=== PATIENT | male | born 1985 | race Caucasian/White ===

== ENCOUNTER 2025-02-11 09:51 | Outpatient (REF) | payer SELFPAY ==
--- OUTSIDE RECORDS SUMMARY | 2025-02-11 10:58 | XMS_ITS | Encounter Summary ---
Author Organization [employer] Address [address] [facility] 7t [place] [address] Care Team Providers Care Miniature Model Maker Name Role Phone Kathryn Parsons MD Primary Care Provider +1- [phone] Encounter Details Date Type Department Care Team (Late st Contact Info) Description 02/11/2025 9:15 AM EDT Office Visit [facility] MED & PEDS [address] [place], [place] [phone] Kathryn Parsons MD [address] [place] [address] Opioid abuse, in remission (CMS/HCC) (Primary Dx); Smoking addiction Social History Tobacco Use Types Packs/Day Years Used Date Smoking Tobacco: Every Day Cigarettes Tobacco Cessation:Ready to Q uit: Not Asked; Counseling Given: Not Answered Comments:15 cig a day x the last 25 years. Alcohol Answer Date Recorded How often do you have a drink containing alcohol ? 2 02/11/2025 How many drinks containing a lcohol do you have on a typical day when you are drinking? 1 02/11/2025 How often do you have six or more drinks on one occasion? 0 02/11/2025 Depression Answer Date Recorded Patient Health Questionnaire-9 Score 2 02/11/2025 Patient Health Questionnaire-9 Score 2 02/11/2025 Last PHQ-9: Questionnaire Data Not on file 0 02/11/2025 Housing Stability Answer Date Recorded What is your housing situation today? I have leela pratt 02/11/[address] you li ve. Do you have problems with any of the following? None of the above 02/11/2025 Food Insecurity Answer Date Recorded Within the past 12 months, y ou worried that your food would run out before you got money to buy more: Never True 02/11/2025 Within the past 12 months,th e food you bought just didn't last and you didn't have enough money to get more: Never True 07/2025 Transportation Answer Date Recorded In the past 12 months, has l ack of transportation kept you from medical appts, meetings, work or from getting things needed for daily living? No 02/11/2025 Utilities Answer Date Recorded In the past 12 months, has t he electric, gas, oil or water company threatened to shut off services in your home? No 02/11/2025 Depression Answer Date Recorded Patient Health Questionnaire-2 Score 0 02/11/2025 Internet Access Answer Date Recorded Internet Access Q1 Yes 02/11/2025 Internet Access Q2 Not on file 02/11/2025 Sex and Gender Information Value Date Recorded Sex Assigned at Male 09/04/2022 10:24 AM EDT Legal Sex Male 10:24 AM EDT Gender Identity Male 09/04/2022 10:24 AM EDT Sexual Orientation Straight 09/04/2022 10 :24 AM EDT documented as of this encounter Last Filed Vital Signs Vital Sign Reading Time Taken Comments Blood Pressure 139/75 02/11/2025 9:10 AM EDT Pulse 92 02/11/2025 9:10 AM EDT Temperature 36.6 ??C (97.9 ??F) 02/11/2025 9:10 AM ED T Respiratory Rate 20 02/11/2025 9:10 AM EDT Oxygen Saturation 98% 02/11/2025 9:10 AM EDT Inhaled Oxygen Concentration - - Weight 90.7 kg (200 lb) 02/11/2025 9:10 AM EDT Height 180.3 cm (5' 11 ) 02/11/2025 9:10 AM EDT Body Mass Index 27.89 02/11/2025 9:10 AM EDT documented in this encounter Plan of Treatment Upcoming Encounters Date Type Department Care Team (Late st Contact Info) Description 04/01/2025 2:45 PM EDT Office Visit [facility] MED & PEDS [address] [place], [place] [phone] Kathryn Parsons MD [address] [place], [place] [phone] Scheduled Orders Name Type Priority Associated Diagnoses Orde r Schedule Comprehensive Metabolic Panel Lab Routine Opioid abuse, in remission ([facility]/HCC) Smoking addiction Expected: 02/11/2025 (Approximate), Expires: 02/11/2026 Lipid Panel, Standard Lab Routine Opioid abuse, in remission ([facility]/HCC) Smoking addiction Expected: 02/11/2025 (Approximate), Expires: 02/11/2026 Lipase Lab Routine Opioid abuse, in remission ([facility]/HCC) Smoking addiction Expected: 02/11/2025, Expires: 02/11/2026 TSH W/Reflex to FT4 Lab Routine Opioid abuse, in remission ([facility]/HCC) Smoking addiction Expected: 02/11/2025 (Approximate), Expires: 02/11/2026 Hepatitis C Viral RNA, Quantitative, Real-Time PCR Lab Routine Opioid abuse, in remission ([facility]/HCC) Smoking addiction Expected: 02/11/2025 (Approximate), Expires: 02/11/2026 HIV-1/2 Antigen and Antibodies, Fourth Generation, with Reflexes Lab Routine Opioid abuse, in remission ([facility]/HCC) Smoking addiction Expected: 02/11/2025 (Approximate), Expires: 02/11/2026 CBC auto differential Lab Routine Opioid abuse, in remission ([facility]/HCC) Smoking addiction Expected: 02/11/2025 (Approximate), Expires: 02/11/2026 Amylase Lab Routine Opioid abuse, in remission ([facility]/HCC) Smoking addiction Expected: 02/11/2025 (Approximate), Expires: 02/11/2026 Amylase Lab Routine Opioid abuse, in remission ([facility]) Smoking addiction Expected: 02/11/2025 (Approximate), Expires: 02/11/2026 documented as of this encounter Visit Diagnoses Diagnosis Opioid abuse, in remission ([facility]/HCC)- Primary Opioid abuse, in remission Smoking addiction documented in this encounter Additional Health Concerns Assessment Noted Time PHQ-9 Depression Total Score: 2 02/12/20 25 9:47 AM EDT documented as of this encounter Care Teams Miniature Model Maker Relationship Specialty Start Date End Date Kathryn Parsons MD [address] [place] [address] PCP - General Internal Medicine 02/11/25 documented as of this encounter
--- OUTSIDE RECORDS SUMMARY | 2025-02-11 10:58 | XMS_ITS | Encounter Summary ---
Author Organization [employer] Address [address] [place] [address] Care Team Providers Care Dinkey Motor Operator Name Role Phone Unavailable Primary Care Provider Unavailabl e Reason for Visit * Reason Onset Date Comments Chart Prep 02/10/2025 Encounter Details Date Type Department Care Team (Late st Contact Info) Description 02/10/2025 Telephone C [facility] [address] [place], [place] [phone] Rocío Diallo [place] Chart Prep Social History Tobacco Use Types Packs/Day Years Used Date Smoking Tobacco: Never Assessed Alcohol Answer Date Recorded How often do [...] AM EDT documented as of this encounter Miscellaneous Notes * Telephone Encounter - Rocío Diallo [place] - 02/10/2025 3:11 PM EDT Chart Prep Labs: not applicable Images: not applicable Vaccines due: yes Referrals: not applicable Screenings: STI screening Overdue care gaps: SBIRT, SDOH, PHQ-9, Oral health screening, Disability screen, and Tobacco documented in this encounter Plan of Treatment Upcoming Encounters Date Type Department Care Team ([facility] st Contact Info) Description 04/01/2025 2:45 PM EDT Office Visit [facility] MED & PEDS [address] [place] [address] Kathryn Parsons MD [address] [place] [address] documented as of this encounter Visit Diagnoses Not on filedocumented in this encounter
--- OUTSIDE RECORDS SUMMARY | 2025-02-11 10:58 | XMS_ITS | Encounter Summary ---
Author Organization [employer] Address [address] [facility] 7 [place] [address] Care Team Providers Care Channel Marketing Coordinator Name Role Phone Unavailable Primary Care Provider Unavailabl e Reason for Visit * Reason Comments Transition Of Care (Tcm) BEAM RACKER/HDF schedule d Encounter Details Date Type Department Care Team (Late st Contact Info) Description 02/06/2025 Patient Outreach [facility] MEDICINE [address] [place], [place] [phone] NameRafael MD [address] [place] [address] Transition Of Care (Tcm) (BEAM RACKER/HDF scheduled) Social History Tobacco Use Types Packs/Day Years Used Date Smoking Tobacco: Never Assessed Sex and Gender Information Value Date Recorded Sex Assigned at Male 09/04/2022 10:24 AM EDT Legal Sex Male 10:24 AM EDT Gender Identity Male 09/04/2022 10:24 AM EDT Sexual Orientation Straight 09/04/2022 10 :24 AM EDT documented as of this encounter Miscellaneous Notes * Significant Event - Ivis Jacobson - 02/06/2025 8:16 AM EDT 02/06/25 0815 Hospital Discharges and Admission for [facility] Type of Visit Hospital Admission Date of Admission/Visit 02/03/25 Date of Discharge 02/05/25 Facility [facility] Acute Pancreatitis Disposition Discharged Home Follow-Up Actions Follow-Up Needed Provider appointment Follow-Up Outcome Spoke to Patient Initial Contact Date 02/06/25 DICKSON Langston placed outbound call to patient for BEAM RACKER/HDF outreach. Patient's name and were confirmed. Patient educated on the importance of follow up with provider following inpatient admission. Patient offered an BEAM RACKER/HDF appt. Patient is agreeable to an appointment and has been scheduled for 02/11/2025 at 9:15 am with Jaqueline Insurance verified prior to scheduling. Patient advised to bring to appointment a photo id and insurance card. Patient also notified that a health center pharmacist will bereaching out to them via telephone prior to their scheduled appointment in order to review their medications in preparation for their appointment. Patient provided with education on contacting the Health Center with any questions or concerns prior to the scheduled appointment. Patient educated on extended clinic hours on Mondays and Wednesdays, and Walk-In Urgent Care Located in [facility] of [facility]. Patient provided with after-hours line for [facility], , which offer night time triage service andoption to transfer to custom protection officer provider if needed. [facility] discharge summary has been scanned into chart for review.. documented in this encounter Plan of Treatment Upcoming Encounters Date Type Department Care Team ([facility] st Contact Info) Description 04/01/2025 2:45 PM EDT Office Visit [facility] MED & PEDS [address] [place] [address] Kathryn Parsons MD [address] [place] [address] documented as of this encounter Visit Diagnoses Not on filedocumented in this encounter
--- OUTSIDE RECORDS SUMMARY | 2025-02-11 10:58 | XMS_ITS | Clinical Summary ---
Author Organization [employer] Address [address] [facility] 7t [place] [address] Care Team Providers Care Local Area Network Systems Adminstrator Name Role Phone Kathryn Parsons MD Primary Care Provider Medications methadone (Dolophine) 10 MG/ML solution Take 50 mg by mouth Once per day. Active Encounters Date Type Department Care Team Description 02/11/2025 9:15 AM EDT Office Visit [facility] MED & PEDS [address] [place] [address] Kathryn Parsons MD Opioid abuse, in remission ([facility]) (Primary Dx); Smoking addiction 02/11/2025 Travel 02/10/2025 Telephone [facility] MED & PEDS [address] [place], [place] [phone] Rocío Diallo [place] Chart Prep 02/10/2025 Telephone [facility] MED & PEDS [address] [place] [address] Kathryn Parsons MD Insurance 02/06/2025 Patient Outreach [facility]ICINE [address] [place], [place] [phone] Rafael Neri MD Transition Of Care (Tcm) (POT FLUXER/HDF scheduled) from Last 3 Months Immunizations Name Administration Dates Next Due Influenza, IIV3, injectable 01/05/2021 Pneumococcal Polysaccharide PPSV23 03/07/2021 Tdap 11/22/2019 Family History Medical History Relation Name Comments Diabetes Father Hypertension Father Hypertension Mother Relation Name Status Comments Father Mother Social History Tobacco Use Types Packs/Day Years [...] your housing situation today? I have leela santa 02/11/[address] you li [...] Orientation Straight 09/04/2022 10 :24 AM EDT Last Filed Vital Signs Vital Sign Reading [...] Mass Index 27.89 02/11/2025 9:10 AM EDT Plan of Treatment Upcoming Encounters Date Type Department Care Team (Late st Contact Info) Description 04/01/2025 2:45 PM EDT Office Visit [facility] MED & PEDS [address] [place] [address] Kathryn Parsons MD [address] [place] [address] Health Maintenance Due Date Last Done Comments HIV Screening 1984 Lipid Panel 1984 Family Planning (PISQ) 01/09/1999 Hepatitis C Screening 01/09/2002 Hepatitis B Vaccines (1 of 3 - 19+ 3-dose series) 01/09/2003 Dental Oral Exam 05/19/2013 11/18/2012 Dental Prophylaxis 06/06/2013 12/06/2012 Dental X-Ray: Bitewings 11/19/2013 11/18/2012 Dental X-Ray: Full Mouth 11/19/2015 11/18/2012 Pneumococcal Vaccine: Pediatrics (0 to 5 Years) and At-Risk Patients (6 to 49) Years) (2 of 2 - PCV) 03/07/2022 03/07/2021 COVID-19 Vaccine (3 - 2023-2 5 season) 2024 03/23/2021, 03/02/2021 Influenza Vaccine (#1) 2024 01/05/2021 Alcohol/Substance Use Screening 02/11/2026 02/11/2025 Depression Screening 02/11/2026 02/11/2025, 02/11/2025 SDOH Screening 02/11/2026 02/11/2025 Tobacco Screening 02/11/2026 02/11/2025 DTaP/Tdap/Td Vaccines (2 - T d or Tdap) 11/22/2029 11/22/2019 Zoster Vaccines (1 of 2) 01/09/2034 RSV Patients and Patients Aged 60 years or older (1 - 1-dose 75+ series) 01/09/2059 HIB Vaccines Aged Out No longer eligi ble based on patient's age to complete this topic HPV Vaccines Aged Out No longer eligi ble based on patient's age to complete this topic Hepatitis A Vaccines Aged Out No long er eligible based on patient's age to complete this topic IPV Vaccines Aged Out No longer eligi ble based on patient's age to complete this topic Meningococcal Vaccine Aged Out No neetu jada eligible based on patient's age to complete this topic RSV under 20 months Aged Out No longe r eligible based on patient's age to complete this topic Rotavirus Vaccines Aged Out No longer eligible based on patient's age to complete this topic Procedures Procedure Name Priority Date/Time Associated Diagnosis Comments PROPHYLAXIS - ADULT Routine 12/06/2012 1 2:00 AM EST INTRAORAL - COMPLETE SERIES OF RADIOGRAPHIC IMAGES Routine 11/18/2012 12:00 AM EST COMPREHENSIVE ORAL EVALUATION - NEW OR ESTABLISHED PATIENT Routine 11/18/2012 12:00 AM EST from Last 3 Months or Most Recently Relevant to Health Maintenance Insurance [facility] Care Teams Local Area Network Systems Adminstrator Relationship Specialty Start Date End Date Kathryn Parsons MD [address] [place] [address] PCP - General Internal Medicine 02/11/25
--- OUTSIDE RECORDS SUMMARY | 2025-02-11 10:58 | XMS_ITS | Encounter Summary ---
Author Organization [employer] Address [address] 7[address] [place] [address] Care Team Providers Care Side Sawyer Name Role Phone Kathryn Parsons MD Primary Care Provider +1- [phone] Encounter Details Date Type Department Care Team (Latest Contact Info) Description 02/11/2025 Travel Social History Tobacco Use Types Packs/Day Years Used Date Smoking Tobacco: Every Day Cigarettes Comments:15 cig a day x the last [...] is your housing situation today? I have leelatoni pratt 02/11/[address] you [...] AM EDT documented as of this encounter Plan of Treatment Upcoming Encounters Date Type Department Care Team (Late st Contact Info) Description 04/01/2025 2:45 PM EDT Office Visit [facility] CHC MED & PEDS [address] [place] [address] Kathryn Parsons MD [address] [place] [address] documented as of this encounter Visit Diagnoses Not on filedocumented in this encounter Additional Health Concerns Assessment Noted Time PHQ-9 Depression Total Score: 2 02/12/20 9:47 AM EDT documented as of this encounter Care Teams Side Sawyer Relationship Specialty Start Date End Date Kathryn Parsons MD [address] [place] [address] PCP - General Internal Medicine 02/11/25 documented as of this encounter
--- OUTSIDE RECORDS SUMMARY | 2025-02-11 10:58 | XMS_ITS | Encounter Summary ---
Author Organization [employer] Address [address] [facility] 7t [place] [address] Care Team Providers Care Maintenance Engineer Name Role Phone Kathryn Parsons MD Primary Care Provider +1- [phone] Reason for Visit * Reason Onset Date Comments New Patient 07/31/2023 Encounter Details Date Type Department Care Team (Late st Contact Info) Description 07/31/2023 Telephone [facility] [address] [place], [place] [phone] Olegario Ramos MD [address] [place], [place] [phone] New Patient Social History Tobacco Use Types Packs/Day Years Used Date Smoking Tobacco: Never Assessed Sex and Gender Information Value Date Recorded Sex Assigned at Male 09/04/2022 10:24 AM EDT Legal Sex Male 10:24 AM EDT Gender Identity Male 09/04/2022 10:24 AM EDT Sexual Orientation Straight 09/04/2022 10 :24 AM EDT documented as of this encounter Miscellaneous Notes * Telephone Encounter - Carolina Us - 08/09/2023 3:55 PM EDT New Patients Par Carolina Connelly called to schedule New patient appt, pt did not answer could not leave voicemail due to pt Voicemail not being set up yet. * Telephone Encounter - Carolina Us - 07/31/2023 1:22 PM EDT Pt has been transfer over to wait list for DISPOSAL OPERATOR. EFFECTIVE SINCE 06/25/2023 documented in this encounter Plan of Treatment Upcoming Encounters Date Type Department Care Team (Late st Contact Info) Description 04/01/2025 2:45 PM EDT Office Visit [facility] MED & PEDS [address] [place] [address] Kathryn Parsons MD [address] [place] [address] documented as of this encounter Visit Diagnoses Not on filedocumented in this encounter Care Teams Maintenance Engineer Relationship Specialty Start Date End Date Kathryn Parsons MD [address] [place] [address] PCP - General Internal Medicine 02/11/25 documented as of this encounter
--- OUTSIDE RECORDS SUMMARY | 2025-02-11 10:58 | XMS_ITS | Encounter Summary ---
Author Organization [employer] Address [address] [facility] 7t [place] [address] Care Team Providers Care Bolting Machine Operator Name Role Phone Unavailable Primary Care Provider Unavailabl e Reason for Visit * Reason Onset Date Comments Insurance 02/10/2025 Encounter Details Date Type Department Care Team (Late st Contact Info) Description 02/10/2025 Telephone [facility] MED [facility]EDS [address] [place], [place] [phone] Kathryn Parsons MD [address] [place] [address] Insurance Social History Tobacco Use Types Packs/Day Years [...] encounter Miscellaneous Notes * Telephone Encounter - Safia Cardoso - 02/10/2025 11:28 AM EDT Outgoing call advised pt to update pcp/loc. Pt understood mentioned he will take care of it before pal appointment tomorrow on 02/11/25. documented in this encounter Plan of Treatment Upcoming Encounters Date Type Department Care Team (Late st Contact Info) Description 04/01/2025 2:45 PM EDT Office Visit [facility] MED & PEDS [address] [place] [address] Kathryn Parsons MD [address] [place] [address] documented as of this encounter Visit Diagnoses Not on filedocumented in this encounter
[2025-02-11 14:55] LABS: MANUAL DIFF FLAG NO
[2025-02-11 14:58] LABS: Basophils Absolute Auto 0.1 X10*3/uL (0.0-0.2); Eosinophils Absolute Auto 0.3 X10*3/uL (0.0-0.4); Eosinophils Percent Auto 3.2 % (0-4); Hematocrit 38.9 % (42.0-52.0); Imm Gran Abs Auto 0.04 X10*3/uL (0.00-0.03); Imm Gran Pct Auto 0.4 % (0.0-0.4); Lymphocytes Absolute Auto 1.1 X10*3/uL (1.2-4.9); Lymphocytes Percent Auto 11.7 % (20-40); Mean Corpuscular Hemoglobin 36.4 pg (27.0-33.0); Mean Platelet Volume 10.8 fL (9.4-12.4); Monocytes Absolute Auto 0.7 X10*3/uL (0.1-1.2); Monocytes Percent Auto 7.4 % (2-11); Neutrophils Percent Auto 76.3 % (45-73); Platelet Count 378 X10*3/uL (160-400); Red Blood Count 3.85 X10*6/uL (4.60-5.80); Red Cell Distribution Width 12.1 % (11.0-16.0); White Blood Count 9.2 X10*3/uL (4.8-10.8)
[2025-02-11 15:03] LABS: Amylase 71 U/L (28-100)
[2025-02-11 15:28] LABS: Alanine Aminotransferase 76 U/L (0-40); Albumin Level 4.6 g/dL (3.5-5.0); Alkaline Phosphatase 89 U/L (39-117); Amylase 71 U/L (28-100); Anion Gap 12 (12-20); Aspartate Amino Transferase 91 U/L (5-37); Bilirubin Total 0.7 mg/dL (0.0-1.0); Blood Urea Nitrogen 11 mg/dL (9-16); Calcium 9.9 mg/dL (8.4-10.2); Carbon Dioxide 20 mmol/L (22-29); Chloride 111 mmol/L (96-108); Cholesterol 243 mg/dL (<200); Estimated Glomerular Filt Rate > 60; Glucose Random 97 mg/dL (60-115); HDL Cholesterol 30 mg/dL (>40); LDL Cholesterol Calculated 185 mg/dL (<100); Lipase 70 U/L (8-78); Potassium 3.8 mmol/L (3.3-5.1); Sodium 139 mmol/L (135-145); Total Protein 7.8 g/dL (6.5-8.0); Triglycerides 140 mg/dL (<150)
[2025-02-11 15:30] LABS: TSH reflex Free T4 2.11 uIU/mL (0.32-4.0)
[2025-02-12 05:29] LABS: HIV AB/AG Nonreactive (Nonreactive); HIV Num 1 0.07 S/CO (0.00-0.99)
[2025-02-13 14:49] LABS: HCV Log PCR <1.18 NOT DETECTED Log IU/mL (NOT DETECTED); HepC Viral Load <15 NOT DETECTED IU/mL (NOT DETECTED)
== END 2025-02-11 09:52 | disposition home or self-care (01) ==
LOC: HO.CHCLDS 09:51
PROVIDERS: Visit Provider Internal Medicine
DX: F11.11 Opioid abuse, in remission (principal); F17.200 Nicotine dependence, unspecified, uncomplicated; Z13.6 Encounter for screening for cardiovascular disorders
CPT/HCPCS: 36415; 80053; 80061; 82150; 83690; 84443; 85025; 87389; 87522

== ENCOUNTER 2025-02-12 10:42 | Outpatient (REF) | payer SELFPAY ==
--- OUTSIDE RECORDS SUMMARY | 2025-02-12 12:42 | XMS_ITS | Encounter Summary ---
Author Organization [employer] Address [address] [facility] 7t [place] [address] Care Team Providers Care Loom Cleaner Name Role Phone Kathryn Parsons MD Primary Care Provider +1- [phone] Reason for Referral * Imaging (Routine) - Authorized Specialty Diagnoses / Procedures Referred By Contac t Referred To Contact Radiology Diagnoses Transaminitis Procedures US Abdomen Complete Kathryn Parsons MD [address] [place] [address] Phone: tel: fax: [address] Phone: tel: fax: Referral ID Status Reason Start Date Expiration Date V isits Requested Visits Authorized [id number] Authorized 02/11/2025 02/11/2026 1 1 Encounter Details Date Type Department Care Team (Late st Contact Info) Description 02/11/2025 Orders Only [facility] MED & PEDS [address] [place] [address] Kathryn Parsons MD [address] [place] [address] Transaminitis (Primary Dx) Social History Tobacco Use Types Packs/Day Years [...] Upcoming Encounters Date Type Department Care Team ([facility] st Contact Info) Description 04/01/2025 2:45 PM EDT Office Visit [facility] MED & PEDS [address] [place] [address] Kathryn Parsons MD [address] [place] [address] Scheduled Orders Name Type Priority Associated Diagnoses Orde r Schedule US Abdomen Complete Imaging Routine Transaminitis Expected: 02/11/2025, Expires: 02/11/2026 Hepatitis A,B,C Profile Lab Routine Transaminitis Expected: 02/11/2025, Expires: 02/11/2026 documented as of this encounter Visit Diagnoses Diagnosis Transaminitis- Primary Nonspecific elevation of levels of transaminase or lactic acid dehydrogenase (LDH) documented in this encounter Additional Health Concerns Assessment Noted Time PHQ-9 Depression Total Score: 2 02/12/20 25 9:47 AM EDT documented as of this encounter Care Teams Loom Cleaner Relationship Specialty Start Date End Date Kathryn Parsons MD [address] [place] [address] PCP - General Internal Medicine 02/11/25 documented as of this encounter
--- OUTSIDE RECORDS SUMMARY | 2025-02-12 12:42 | XMS_ITS | Encounter Summary ---
Author Organization [employer] Address [address] [facility] 7t [place] [address] Care Team Providers Care Mental Health Worker Name Role Phone Unavailable Primary Care Provider Unavailabl e Reason for Visit * Reason Onset Date Comments Insurance 02/10/2025 Encounter Details Date Type Department Care Team (Late st Contact Info) Description 02/10/2025 Telephone [facility] [address] [place], [place] [phone] Kathryn Parsons MD [address] [place] [address] Insurance Social History Tobacco Use Types Packs/Day [...] Description 04/01/2025 2:45 PM EDT Office Visit [facility] MED & PEDS [address] [place] [address] Kathryn Parsons MD [address] [place] [address] documented as of this encounter Visit Diagnoses Not on filedocumented in this encounter
--- OUTSIDE RECORDS SUMMARY | 2025-02-12 12:42 | XMS_ITS | Encounter Summary ---
Author Organization [employer] Address [address] [facility] [place] [address] Care Team Providers Care Commercial Carpenter Name Role Phone Unavailable Primary Care Provider Unavailabl e Reason for Visit * Reason Onset Date Comments Chart Prep 02/10/2025 Encounter Details Date Type Department Care Team (Late st Contact Info) Description 02/10/2025 Telephone [facility] [address] [place], [place] [phone] Rocío Diallo [place] Chart Prep Social History [...] Upcoming Encounters Date Type Department Care Team ([facility] st Contact Info) Description 04/01/2025 2:45 PM EDT Office Visit [facility] MED & PEDS [address] [place] [address] Kathryn Parsons MD [address] [place] [address] documented as of this encounter Visit Diagnoses Not on filedocumented in this encounter
--- OUTSIDE RECORDS SUMMARY | 2025-02-12 12:42 | XMS_ITS | Encounter Summary ---
Author Organization [employer] Address [address] 7[address] [place] [address] Care Team Providers Care Member Services Representative Name Role Phone Kathryn Parsons MD Primary Care Provider +1- [phone] Encounter Details Date Type Department Care Team [...] Description 04/01/2025 2:45 PM EDT Office Visit [facility] MED & PEDS [address] [place] [address] Kathryn Parsons MD [address] [place] [address] documented as of this encounter Visit Diagnoses Not on filedocumented in this encounter Additional Health Concerns Assessment Noted Time PHQ-9 Depression Total Score: 2 02/12/20 9:47 AM EDT documented as of this encounter Care Teams Member Services Representative Relationship Specialty Start Date End Date Kathryn Parsons MD [address] [place] [address] PCP - General Internal Medicine 02/11/25 documented as of this encounter
--- OUTSIDE RECORDS SUMMARY | 2025-02-12 12:42 | XMS_ITS | Encounter Summary ---
Author Organization [employer] Address [address] [facility] [address] [place] [address] Care Team Providers Care Photo Manager Name Role Phone Kathryn Parsons MD Primary Care Provider [phone]- [phone] Reason for Visit * Reason Comments Hospital discharge follow-up Encounter Details Date Type Department Care Team ([facility] st Contact Info) Description 02/11/2025 9:15 AM EDT Office Visit [facility] CHC MED & PEDS [address] [place] [address] Kathryn Parsons MD [address] [place] [address] Opioid abuse, in remission (CMS/HCC) (Primary Dx); Smoking addiction; Alcohol use disorder Social History Tobacco Use Types Packs/Day Years Used Date Smoking Tobacco: Every Day Cigarettes Tobacco Cessation:Ready to Q uit: Yes Comments:15 cig a day x the last [...] 9:10 AM EDT documented in this encounter Progress Notes * Kathryn Parsons MD - 02/11/2025 9:15 AM EDT Subjective Patient ID: Theodore Sequeira is a 40 y.o. male who presents for Hospital discharge follow-up and Allergic Rhinitis. HPI Patient was hospitalized at [facility] from February 03, 2025 to February 05, 2025 for an acute abdominal pain, nausea and vomiting. Diagnosed with alcoholic pancreatitis. Treated conservatively. Diet slowly advanced. Patient declined treatment with acamprosate at discharge. He has been sober for the last 9 days. Currently on methadone 25 mg 2 times a day which was changedto 50 mg once a day only. Was also discharged on folic acid 1 mg once a day multivitamin once a dayand thiamine 100 mg once a day Patient Active Problem List Diagnosis Smoking addiction Current Outpatient Medications on File Prior to Visit Medication Sig Dispense Refill methadone (Dolophine) 10 MG/ML solution Take 50 mg by mouth Once per day. No current facility-administered medications on file prior to visit. No Known Allergies Review of Systems Constitutional: Negative for activity change, appetite change, chills and diaphoresis. HENT: Negative for dental problem, drooling and ear discharge. Eyes: Negative for pain and itching. Respiratory: Negative for cough, choking and chest tightness. Cardiovascular: Negative for palpitations and leg swelling. Gastrointestinal: Negative for abdominal pain, anal bleeding and blood in stool. Endocrine: Negative for cold intolerance and heat intolerance. Genitourinary: Negative for flank pain, frequency and genital sores. Musculoskeletal: Negative for back pain. Neurological: Negative for light-headedness, numbness and headaches. Psychiatric/Behavioral: Negative for agitation, confusion and decreased concentration. Objective Physical Exam Constitutional: General: He is not in acute distress. Appearance: Normal appearance. He is not ill-appearing, toxic-appearing or diaphoretic. Cardiovascular: Rate and Rhythm: Normal rate. Pulmonary: Effort: Pulmonary effort is normal. No respiratory distress. Breath sounds: No stridor. No wheezing or rhonchi. Abdominal: General: There is no distension. Palpations: Abdomen is soft. Tenderness: There is no abdominal tenderness. Neurological: General: No focal deficit present. Mental Status: He is alert. Psychiatric: Mood and Affect: Mood normal. Assessment/Plan Diagnoses and all orders for this visit: Opioid abuse, in remission (CMS/[facility]) Comments: Continue with methadone maintenance Orders: - Comprehensive Metabolic Panel; Future - Lipid Panel, Standard; Future - Lipase; Future - TSH W/Reflex to FT4; Future - Hepatitis C Viral RNA, Quantitative, Real-Time PCR; Future - HIV-1/2 Antigen and Antibodies, Fourth Generation, with Reflexes; Future - CBC auto differential; Future - Amylase; Future - Amylase; Future Smoking addiction Comments: Patient appears motivated to quit Risk and benefits of a trial of varenicline discussed Patient would like to proceed. Orders: - Comprehensive Metabolic Panel; Future - Lipid Panel, Standard; Future - Lipase; Future - TSH W/Reflex to FT4; Future - Hepatitis C Viral RNA, Quantitative, Real-Time PCR; Future - HIV-1/2 Antigen and Antibodies, Fourth Generation, with Reflexes; Future - CBC auto differential; Future - Amylase; Future - Amylase; Future - varenicline (Chantix) 1 MG tablet; Take with full glass of water. 1 tablet daily from day 1 to day 3, 1 tab 2 times a day from day 4 today 7 - varenicline (Chantix) 1 MG tablet; Take 1 tablet (1 mg) by mouth 2 times daily. Take with full glass of water. Alcohol use disorder Comments: Patient declines help to remain sober for now He would like to quit on his own Aware to contact the office if he changes his mind. documented in this encounter Plan of Treatment Upcoming Encounters Date Type Department Care Team (Late st Contact Info) Description 04/01/2025 2:45 PM EDT Office Visit [facility] CHC MED & PEDS [address] [place] [phone] Kathryn Parsons MD [address] [place] [phone] Scheduled Orders Name Type Priority Associated Diagnoses Orde r Schedule Hepatitis C Viral RNA, Quantitative, Real-Time PCR Lab Routine Opioid abuse, in remission (CMS/HCC) Smoking addiction Expected: 02/11/2025 (Approximate), Expires: 02/11/2026 documented as of this encounter Procedures Procedure Name Priority Date/Time Associated Diagnosis Comments TSH W/REFLEX TO FT4 Routine 02/11/2025 9 :57 AM EDT Opioid abuse, in remission (CMS/HCC) Smoking addiction CBC WITH AUTO DIFFERENTIAL Routine 02/11/2025 9:57 AM EDT Opioid abuse, in remission (CMS/HCC) Smoking addiction HIV 1/2 ANTIGEN/ANTIBODY, FOURTH GENERATION W/RFL Routine 02/11/2025 9:57 AM EDT Opioid abuse, in remission (CMS/HCC) Smoking addiction LIPASE Routine 02/11/2025 9:57 AM EDT Opioid abuse, in remission (CMS/HCC) Smoking addiction AMYLASE Routine 02/11/2025 9:57 AM EDT Opioid abuse, in remission (CMS/HCC) Smoking addiction AMYLASE Routine 02/11/2025 9:57 AM EDT Opioid abuse, in remission (CMS/HCC) Smoking addiction LIPID PANEL, STANDARD Routine 02/11/2025 9:57 AM EDT Opioid abuse, in remission (CMS/HCC) Smoking addiction COMPREHENSIVE METABOLIC PANEL Routine 02/11/2025 9:57 AM EDT Opioid abuse, in remission (CMS/HCC) Smoking addiction documented in this encounter Results * Amylase (02/11/2025 9:57 AM EDT) Amylase 71 28 - 100 U/L [facility] Blood Venous blood specimen / Unknown 02/11/2025 9:57 AM EDT 02/11/2025 2:51 PM EDT us Kathryn Parsons MD LAB BLOOD ORDERABLES Final Result [facility] [address] [place] [phone] * Amylase (02/11/2025 9:57 AM EDT) Amylase 71 28 - 100 U/L [facility] Blood Venous blood specimen / Unknown 02/11/2025 9:57 AM EDT 02/11/2025 2:51 PM EDT us Kathryn Parsons MD LAB BLOOD ORDERABLES Final Result [facility] [address] [place], [place] [phone] * (ABNORMAL) CBC auto differential (02/11/2025 9:57 AM EDT) White Blood Count 9.2 4.8 - 10.8 X10*3/uL [facility] Red Blood Count 3.85(L) 4.60 - 5.80 X10*6/uL [facility] Hemoglobin 14.0 14.0 - 18.0 g/dl [facility] Hematocrit 38.9(L) 42.0 - 52.0 % [facility] Mean Corpuscular Volume 101.0(H) 80.0 - 98.0 fL [facility] Mean Corpuscular Hemoglobin 36.4(H) 27.0 - 33.0 pg [facility] Mean Corpuscular HGB Conc 36.0 31.0 - 36.0 g/dl [facility] Red Cell Distribution Width 12.1 11.0 - 16.0 % [facility] Platelet Count 378 160 - 400 X10*3/uL [facility] Mean Platelet Volume 10.8 9.4 - 12.4 fL [facility] Neutrophils Percent Auto 76.3(H) 45 - 73 % [facility] Imm Gran Pct Auto 0.4 0.0 - 0.4 % [facility] Lymphocytes Percent Auto 11.7(L) 20 - 40 % [facility] Monocytes Percent Auto 7.4 2 - 11 % [facility] Eosinophils Percent Auto 3.2 0 - 4 % [facility] Basophils Percent Auto 1.0 0 - 2 % [facility] NRBC Pct Auto 0.0 0.0 - 0.2 /100WBC [facility] Neutrophils Absolute Auto 7.0 2.0 - 8.3 x10*3/uL [facility] Imm Gran Abs Auto 0.04(H) 0.00 - 0.03 X10*3/uL [facility] Lymphocytes Absolute Auto 1.1(L) 1.2 - 4.9 X10*3/uL [facility] Monocytes Absolute Auto 0.7 0.1 - 1.2 X10*3/uL [facility] Eosinophils Absolute Auto 0.3 0.0 - 0.4 X10*3/uL [facility] Basophils Absolute Auto 0.1 0.0 - 0.2 X10*3/uL [facility] NRBC Abs Auto 0.000 0.0 - 0.012 X10*3/uL [facility] Blood Venous blood specimen / Unknown 02/11/2025 9:57 AM EDT 02/11/2025 2:51 PM EDT us Kathryn Parsons MD LAB BLOOD ORDERABLES Final Result [facility] [address] [place] [phone] * HIV-1/2 Antigen and Antibodies, Fourth Generation, with Reflexes (02/11/2025 9:57 AM EDT) HIV AB/AG Nonreactive Nonreactive [facility] Comment:HIV-1 p24 Ag and/or HIV-1/HIV-2 Ab not detected.A test result that is nonreactive does not exclude thepossibility of exposure to or infection with HIV-1 and/orHIV-2. Nonreactive results in this assay for individualswith prior exposure to HIV-1 and/or HIV-2 may be due toantigen and antibody levels that are below the limit ofdetection of this assay.The RETAIL PRO HIV Ag/Ab Combo assay result andsupplemental assay results should be interpreted inconjunction with the patient's clinical presentation,history and other laboratory results. If the results areinconsistent with clinical evidence, additional testing issuggested to confirm the result. Blood Venous blood specimen / Unknown 02/11/2025 9:57 AM EDT 02/11/2025 2:51 PM EDT us Kathryn Parsons MD LAB BLOOD ORDERABLES Final Result Performing Organization Address [facility]/ZIP Co de Phone Number [facility] [address] [place] [phone] * TSH W/Reflex to FT4 (02/11/2025 9:57 AM EDT) TSH reflex Free T4 2.11 0.32 - 4.0 uIU/mL [facility] Blood Venous blood specimen / Unknown 02/11/2025 9:57 AM EDT 02/11/2025 2:51 PM EDT us Kathryn Parsons MD LAB BLOOD ORDERABLES Final Result Performing Organization Address [facility] Co de Phone Number [facility] [address] [place] [phone] * Lipase (02/11/2025 9:57 AM EDT) Pathologist [facility] Lipase 70 8 - 78 U/L [facility] Blood Venous blood specimen / Unknown 02/11/2025 9:57 AM EDT 02/11/2025 2:51 PM EDT us Kathryn Parsons MD LAB BLOOD ORDERABLES Final Result Performing Organization Address [facility]/ZIP Co de Phone Number [facility] [address] [place] [phone] * (ABNORMAL) Lipid Panel, Standard (02/11/2025 9:57 AM EDT) Triglycerides 140 <150 mg/dL [facility] Comment:Desirable Triglyceri de: less than 150 mg/dLBorderline High Triglyceride 150-199 mg/dLHigh Triglyceride: 200-499 mg/dLVery High Triglyceride: greater than or equal to 5OO mg/dL Cholesterol 243(H) <200 mg/dL [facility] Comment:Desirable Cholestero l: less than 200 mg/dLBorderline High Cholesterol: 200-239 mg/dLHigh Cholesterol: greater than 239 mg/dL LDL Cholesterol Calculated 185(H) <100 mg/dL [facility] Comment:Desirable LDL: less than 100 mg/dLNear Optimal/Above Optimal LDL: 110- 129 mg/dLBorderline High LDL: 130-159 mg/dLHigh LDL: 160-189 mg/dLVery High LDL: greater than or equal to 190 mg/dL HDL Cholesterol 30(L) >40 mg/dL [facility] Comment:Desirable HDL: great er than 40 mg/dL Note: This HDL assay may give artificially low results in patients with liver disease. Blood Venous blood specimen / Unknown 02/11/2025 9:57 AM EDT 02/11/2025 2:51 PM EDT us Kathryn Parsons MD LAB BLOOD ORDERABLES Final Result [facility] [address] [place] [phone] * (ABNORMAL) Comprehensive Metabolic Panel (02/11/2025 9:57 AM EDT) Sodium 139 135 - 145 mmol/L [facility] Potassium 3.8 3.3 - 5.1 mmol/L [facility] Chloride 111(H) 96 - 108 mmol/L [facility] Carbon Dioxide 20(L) 22 - 29 mmol/L [facility] Anion Gap 12 12 - 20 [facility] Urea Nitrogen (BUN) 11 9 - 16 mg/dL [facility] Creatinine, Serum 0.92 0.5 - 1.4 mg/dL [facility] Estimated Glomerular Filt Rate >60 [facility] Comment:Chronic Kidney Disea se: Estimated GFR < 60 mL/min/[id number] Kidney Disease: Estimated GFR < 15 mL/min/1.73m2 Glucose 97 60 - 115 mg/dL [facility] Calcium 9.9 8.4 - 10.2 mg/dL [facility] Bilirubin, Total 0.7 0.0 - 1.0 mg/dL [facility] Aspartate Amino Transferase 91(H) 5 - 37 U/L [facility] Alanine Aminotransferase 76(H) 0 - 40 U/L [facility] Total Protein 7.8 6.5 - 8.0 g/dL [facility] Albumin Level 4.6 3.5 - 5.0 g/dL [facility] Alkaline Phosphatase 89 39 - 117 U/L [facility] Blood Venous blood specimen / Unknown 02/11/2025 9:57 AM EDT 02/11/2025 2:51 PM EDT us Kathryn Parsons MD LAB BLOOD ORDERABLES Final Result [facility] [address] [place] [phone] documented in this encounter Visit Diagnoses Diagnosis Opioid abuse, in remission (CMS/HCC)- Primary Opioid abuse, in remission Smoking addiction Alcohol use disorder documented in this encounter Additional Health Concerns Assessment Noted Time PHQ-9 Depression Total Score: 2 02/12/20 9:47 AM EDT documented as of this encounter Care Teams Photo Manager Relationship Specialty Start Date End Date Kathryn Parsons MD [address] [place] [phone] PCP - General Internal Medicine 02/11/25 documented as of this encounter
--- OUTSIDE RECORDS SUMMARY | 2025-02-12 12:42 | XMS_ITS | Encounter Summary ---
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 EFFECTIVE SINCE 06/25/2023 documented in this encounter Plan of Treatment Upcoming Encounters Date Type Department Care Team (Late st Contact Info) Description 04/01/2025 2:45 PM EDT Office Visit [facility] CHC MED & PEDS [address] [place] [address] Kathryn Parsons MD [address] [place] [address] documented as of this encounter Visit Diagnoses Not on filedocumented in this encounter Care Teams Janitor Custodian Relationship Specialty Start Date End Date Kathryn Parsons MD [address] [place] [address] PCP - General Internal Medicine 02/11/25 documented as of this encounter
--- OUTSIDE RECORDS SUMMARY | 2025-02-12 12:42 | XMS_ITS | Encounter Summary ---
Author Organization [employer] Address [address] [facility] [address] [place] [address] Care Team Providers Care Beef Splitter Name Role Phone Kathryn Parsons MD Primary Care Provider [phone]- [phone] Reason for Visit * Reason Onset Date Comments Results 02/12/2025 Encounter Details Date Type Department Care Team ([facility] st Contact Info) Description 02/12/2025 Telephone C [facility] MED [facility] PEDS [address] [place] [address] Kathryn Parsons MD [address] [place] [phone] Results Social History Tobacco Use Types Packs/Day Years [...] encounter Miscellaneous Notes * Telephone Encounter - Antonia Toro RN - 02/12/2025 9:57 AM EDT TC to pt. Labs results explained: 1) abnormal liver test. Patient needs a hepatitis profile and an ultrasound of the abdomen. He is to continue with sobriety. 2) macrocytosis which could be due to his history of alcohol use and or vitamin B12 and folic acid deficiency. This is reversible with alcohol cessation. I will order vitamin B12 and folic acid level. 3) hypercholesterolemia. No need to start medication for now. Please advise a low-cholesterol diet. Pt verbalized understanding and agreement with the plan of care and states that he will be in latertoday for his lab work. documented in this encounter Plan of Treatment Upcoming Encounters Date Type Department Care Team (Late st Contact Info) Description 04/01/2025 2:45 PM EDT Office Visit [facility] MED & PEDS [address] [place], [place] [phone] Kathryn Parsons MD [address] [place], [place] [phone] documented as of this encounter Visit Diagnoses Not on filedocumented in this encounter Additional Health Concerns Assessment Noted Time PHQ-9 Depression Total Score: 2 02/12/20 25 9:47 AM EDT documented as of this encounter Care Teams Beef Splitter Relationship Specialty Start Date End Date Kathryn Parsons MD [address] [facility] [place] [address] PCP - General Internal Medicine 02/11/25 documented as of this encounter
--- OUTSIDE RECORDS SUMMARY | 2025-02-12 12:43 | XMS_ITS | Clinical Summary ---
Author Organization [employer] Address [address] [facility] [address] [place] [address] Care Team Providers Care Television Operator Name Role Phone Kathryn Parsons MD Primary Care Provider Allergies No known active allergies Medications methadone (Dolophine) 10 MG/ML solution Take 50 mg by mouth Once per day. Active varenicline (Chantix) 1 MG tabletIndication s:Smoking addiction Take with full glass of water. 1 tablet daily from day 1 to day 3, 1 tab 2 times a day from day 4 today 7 11 tablet 1 02/11/2025 Active varenicline (Chantix) 1 MG tabletIndication s:Smoking addiction Take 1 tablet (1 mg) by mouth 2 times daily. Take with full glass of water. 60 tablet 2 02/11/2025 Active Active Problems Problem Noted Date Diagnosed Date Smoking addiction 02/11/2025 Encounters Date Type Department Care Team Description 02/12/2025 Telephone [facility] [address] [place] [address] Kathryn Parsons MD Results 02/11/2025 9:15 AM EDT Office Visit [facility] [address] [place] [address] Kathryn Parsons MD Opioid abuse, in remission (CMS/HCC) (Primary Dx); Smoking addiction; Alcohol use disorder 02/11/2025 Orders Only [facility] [address] [place] [address] Kathryn Parsons MD Transaminitis (Primary Dx) 02/11/2025 Travel 02/10/2025 Telephone [facility] [address] [place] [address] Rocío Diallo [place] Chart Prep 02/10/2025 Telephone [facility] [address] [place] [address] Kathryn Parsons MD Insurance 02/06/2025 Patient Outreach [facility] MEDIC[facility] [address] [place] [address] Name, MD Rafael Transition Of Care (Tcm) (CASINO HOST/HDF scheduled) from Last 3 Months Immunizations Name [...] 2:45 PM EDT Office Visit [facility] [address] [place] [address] Kathryn Parsons MD [address] [place] [address] Health Maintenance Due Date Last Done Comments Family Planning (PISQ) 01/09/1999 Hepatitis C Screening [...] - T d or Tdap) 11/22/2029 11/22/2019 Lipid Panel 02/11/2030 02/11/2025 Zoster Vaccines (1 of 2) 01/09/2034 RSV Patients and Patients Aged 60 years or older (1 - 1-dose 75+ series) 01/09/2059 HIV Screening Completed 02/11/2025 HIB Vaccines Aged Out No longer eligi [...] Procedure Name Priority Date/Time Associated Diagnosis Comments AMYLASE Routine 02/11/2025 9:57 AM EDT Opioid abuse, in remission (CMS/HCC) Smoking addiction AMYLASE Routine 02/11/2025 9:57 AM EDT Opioid abuse, in remission (CMS/HCC) Smoking addiction CBC WITH AUTO DIFFERENTIAL Routine 02/11/2025 9:57 AM EDT Opioid abuse, in remission (CMS/HCC) Smoking addiction HIV 1/2 ANTIGEN/ANTIBODY, FOURTH GENERATION W/RFL Routine 02/11/2025 9:57 AM EDT Opioid abuse, in remission (CMS/HCC) Smoking addiction TSH W/REFLEX TO FT4 Routine 02/11/2025 9 :57 AM EDT Opioid abuse, in remission (CMS/HCC) Smoking addiction LIPASE Routine 02/11/2025 9:57 AM EDT Opioid abuse, in remission (CMS/HCC) Smoking addiction LIPID PANEL, STANDARD Routine 02/11/2025 9:57 AM EDT Opioid abuse, in remission (CMS/HCC) Smoking addiction COMPREHENSIVE METABOLIC PANEL Routine 02/11/2025 9:57 AM EDT Opioid abuse, in remission (CMS/HCC) Smoking addiction PROPHYLAXIS - ADULT Routine 12/06/2012 1 2:00 AM EST INTRAORAL - COMPLETE SERIES OF RADIOGRAPHIC IMAGES Routine 11/18/2012 12:00 AM EST COMPREHENSIVE ORAL EVALUATION - NEW OR ESTABLISHED PATIENT Routine 11/18/2012 12:00 AM EST from Last 3 Months or Most Recently Relevant to Health Maintenance Results * TSH W/Reflex to FT4 (02/11/2025 9:57 AM EDT) TSH reflex Free T4 2.11 0.32 - 4.0 uIU/mL [facility] Blood Venous blood specimen / Unknown 02/11/2025 9:57 AM EDT 02/11/2025 2:51 PM EDT us Kathryn Parsons MD LAB BLOOD ORDERABLES Final Result [facility] [address] [place] [phone] * (ABNORMAL) CBC auto differential (02/11/2025 9:57 AM EDT) White Blood Count 9.2 4.8 - 10.8 X10*3/uL [facility] Red Blood Count 3.85(L) 4.60 - 5.80 X10*6/uL [facility] Hemoglobin 14.0 14.0 - 18.0 g/dl [facility] Hematocrit 38.9(L) 42.0 - 52.0 % [facility] Mean Corpuscular Volume 101.0(H) 80.0 - 98.0 fL [facility] Mean Corpuscular Hemoglobin 36.4(H) 27.0 - 33.0 pg [facility] Mean Corpuscular HGB Conc 36.0 31.0 - 36.0 g/dl [facility] Red Cell Distribution Width 12.1 11.0 - 16.0 % [facility] Platelet Count 378 160 - 400 X10*3/uL [facility] Mean Platelet Volume 10.8 9.4 - 12.4 fL [facility] Neutrophils Percent Auto 76.3(H) 45 - 73 % [facility] Imm Gran Pct Auto 0.4 0.0 - 0.4 % [facility] Lymphocytes Percent Auto 11.7(L) 20 - 40 % [facility] Monocytes Percent Auto 7.4 2 - 11 % [facility] Eosinophils Percent Auto 3.2 0 - 4 % [facility] Basophils Percent Auto 1.0 0 - 2 % [facility] NRBC Pct Auto 0.0 0.0 - 0.2 /100WBC [facility] Neutrophils Absolute Auto 7.0 2.0 - 8.3 x10*3/uL [facility] Imm Gran Abs Auto 0.04(H) 0.00 - 0.03 X10*3/uL [facility] Lymphocytes Absolute Auto 1.1(L) 1.2 - 4.9 X10*3/uL [facility] Monocytes Absolute Auto 0.7 0.1 - 1.2 X10*3/uL [facility] Eosinophils Absolute Auto 0.3 0.0 - 0.4 X10*3/uL [facility] Basophils Absolute Auto 0.1 0.0 - 0.2 X10*3/uL [facility] NRBC Abs Auto 0.000 0.0 - 0.012 X10*3/uL [facility] Blood Venous blood specimen / Unknown 02/11/2025 9:57 AM EDT 02/11/2025 2:51 PM EDT us Kathryn Parsons MD LAB BLOOD ORDERABLES Final Result Performing Organization Address [facility]/ZIP Co de Phone Number [facility] [address] [place] [phone] [phone] * HIV-1/2 Antigen and Antibodies, Fourth Generation, with Reflexes (02/11/2025 9:57 AM EDT) HIV AB/AG Nonreactive Nonreactive [facility] Comment:HIV-1 p24 Ag and/or HIV-1/HIV-2 Ab not detected.A test result that is nonreactive does not exclude thepossibility of exposure to or infection with HIV-1 and/orHIV-2. Nonreactive results in this assay for individualswith prior exposure to HIV-1 and/or HIV-2 may be due toantigen and antibody levels that are below the limit ofdetection of this assay.The [employer] HIV Ag/Ab Combo assay result andsupplemental assay results should be interpreted inconjunction with the patient's clinical presentation,history and other laboratory results. If the results areinconsistent with clinical evidence, additional testing issuggested to confirm the result. Blood Venous blood specimen / Unknown 02/11/2025 9:57 AM EDT 02/11/2025 2:51 PM EDT us Kathryn Parsons MD LAB BLOOD ORDERABLES Final Result Performing Organization Address [facility]/ZIP Co de Phone Number [facility] [address] [place] [phone] * Lipase (02/11/2025 9:57 AM EDT) Lipase 70 8 - 78 U/L [facility] Blood Venous blood specimen / Unknown 02/11/2025 9:57 AM EDT 02/11/2025 2:51 PM EDT Kathryn Parsons MD LAB BLOOD ORDERABLES Final Result Performing Organization Address City/[facility]/ZIP Co de Phone Number [facility] [address] [place] [phone] * Amylase (02/11/2025 9:57 AM EDT) Only the most recent of2 resultswithin the time period is included. Amylase 71 28 - 100 U/L [facility] Blood Venous blood specimen / Unknown 02/11/2025 9:57 AM EDT 02/11/2025 2:51 PM EDT Kathryn Parsons MD LAB BLOOD ORDERABLES Final Result Performing Organization Address City/[facility] Co de Phone Number [facility] [address] [place] [phone] * (ABNORMAL) Lipid Panel, Standard (02/11/2025 9:57 AM EDT) Triglycerides 140 <150 mg/dL [facility] Comment:Desirable Triglyceri de: less than 150 mg/dLBorderline High Triglyceride 150-199 mg/dLHigh Triglyceride: 200-499 mg/dLVery High Triglyceride: greater than or equal to 5OO mg/dL Cholesterol 243(H) <200 mg/dL [facility] Comment:Desirable Cholestero l: less than 200 mg/dLBorderline High Cholesterol: 200-239 mg/dLHigh Cholesterol: greater than 239 mg/dL LDL Cholesterol Calculated 185(H) <100 mg/dL [facility] Comment:Desirable LDL: less than 100 mg/dLNear Optimal/Above Optimal LDL: 110- 129 mg/dLBorderline High LDL: 130-159 mg/dLHigh LDL: 160-189 mg/dLVery High LDL: greater than or equal to 190 mg/dL HDL Cholesterol 30(L) >40 mg/dL [facility] Comment:Desirable HDL: great er than 40 mg/dL Note: This HDL assay may give artificially low results in patients with liver disease. Blood Venous blood specimen / Unknown 02/11/2025 9:57 AM EDT 02/11/2025 2:51 PM EDT us Kathryn Parsons MD LAB BLOOD ORDERABLES Final Result [facility] [address] [place] [phone] * (ABNORMAL) Comprehensive Metabolic Panel (02/11/2025 9:57 AM EDT) Sodium 139 135 - 145 mmol/L [facility] Potassium 3.8 3.3 - 5.1 mmol/L [facility] Chloride 111(H) 96 - 108 mmol/L [facility] Carbon Dioxide 20(L) 22 - 29 mmol/L [facility] Anion Gap 12 12 - 20 [facility] Urea Nitrogen (BUN) 11 9 - 16 mg/dL [facility] Creatinine, Serum 0.92 0.5 - 1.4 mg/dL [facility] Estimated Glomerular Filt Rate >60 [facility] Comment:Chronic Kidney Disea se: Estimated GFR < 60 mL/min/1.48w5Gxszin Kidney Disease: Estimated GFR < 15 mL/min/1.73m2 Glucose 97 60 - 115 mg/dL [facility] Calcium 9.9 8.4 - 10.2 mg/dL [facility] Bilirubin, Total 0.7 0.0 - 1.0 mg/dL [facility] Aspartate Amino Transferase 91(H) 5 - 37 U/L [facility] Alanine Aminotransferase 76(H) 0 - 40 U/L [facility] Total Protein 7.8 6.5 - 8.0 g/dL [facility] Albumin Level 4.6 3.5 - 5.0 g/dL [facility] Alkaline Phosphatase 89 39 - 117 U/L [facility] Blood Venous blood specimen / Unknown 02/11/2025 9:57 AM EDT 02/11/2025 2:51 PM EDT Kathryn Parsons MD LAB BLOOD ORDERABLES Final Result [facility] [address] [place] [phone] from Last 3 Months Insurance [facility] Care Teams Television Operator Relationship Specialty Start Date End Date Kathryn Parsons MD [address] [place] [phone] PCP - General Internal Medicine 02/11/25
[2025-02-13 04:23] LABS: HBS Num1 863.51 mIU/mL (0-7.99); HBc Num1 0.07 S/CO (0.00-0.79); HBsAGNum1 0.39 S/CO (0.00-0.99); Hepatitis B Core Antibody Nonreactive (Nonreactive); Hepatitis B Surface Antigen Negative (Negative); ~HepC Num1 0.08 S/CO (0.00-0.79); ~Hepatitis B Surface Antibody REACTIVE (Nonreactive); ~Hepatitis C Antibody Nonreactive (Nonreactive)
[2025-02-17 08:06] LABS: Hepatitis A Antibody IgM 0.17 Index (0-0.79); ~Hepatitis A Antibody IgM Nonreactive (Nonreactive)
== END 2025-02-12 10:43 | disposition home or self-care (01) ==
LOC: HO.CHCLDS 10:42
PROVIDERS: Visit Provider Internal Medicine
DX: R74.01 Elevation of levels of liver transaminase levels (principal)
CPT/HCPCS: 36415; 86704; 86706; 86709; 86803; 87340